=== PATIENT | female | born 1995 | race Caucasian/White ===

== ENCOUNTER 2022-12-15 16:12 | Emergency (ER) | payer BC ==
--- NOTE | 2022-12-15 20:52 | ED ---
Female Urogenital HPI - General Chief complaint: Abdominal Pain Stated complaint: Vag Bleeding-13 wks Time Seen by Provider: 12/15/22 20:09 Source: patient Mode of arrival: ambulatory Limitations: no limitations - History of Present Illness Initial comments: This patient is a 27-year-old woman who states that early today she noticed that when she went to the bathroom she was having small amount of spotting type bleeding. She was concerned because she is oxygen only 13 weeks by ultrasound. This is her first so she was very concerned. 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 She then came here to have evaluation. She notes that the bleeding has stopped. She went through 2 pads. The patient also had some associated cramping but that has stopped as well. The patient states that she feels back to normal now. She had not noted fever or chills. No change in urination. No vomiting or diarrhea. MD Complaint: vaginal bleeding -: hour(s) Location: suprapubic Radiation: non-radiating Severity: mild Quality: cramping Consistency: now resolved Improves with: none Worsens with: none Last Menstrual Period: 10/14/22 Patient : Yes Number of weeks : 13 Associated Symptoms: vaginal bleeding - Related Data Sexually active: Yes : 1 Para: 0 Previous Rx's Medication Instructions Recorded Amoxicillin 500 mg PO Q8H #21 capsule 12/15/22 Allergies Allergy/AdvReac Type Severity Reaction Status Date / Time No Known Allergies Allergy Verified 12/15/22 18:19 Review of Systems ROS Statement: Those systems with pertinent positive or pertinent negative responses have been documented in the HPI. ROS Other: All systems not noted in ROS Statement are negative. Constitutional: Denies: fever, chills Respiratory: Denies: cough, dyspnea Cardiovascular: Denies: chest pain, palpitations, edema Gastrointestinal: Reports: abdominal pain. Denies: nausea, vomiting, diarrhea, constipation, melena, hematochezia Genitourinary: Reports: discharge, abnormal menses. Denies: dysuria, frequency, hematuria Musculoskeletal: Denies: back pain Skin: Denies: rash Neurological: Denies: headache, weakness, numbness Hematological/Lymphatic: Denies: easy bleeding Past Medical History History of Any Multi-Drug Resistant Organisms: None Reported Additional Past Surgical History / Comment(s): rt wrist Past Psychological History: No Psychological Hx Reported Smoking Status: Never smoker Past Alcohol Use History: Occasional Past Drug Use History: None Reported General Exam Limitations: no limitations General appearance: alert, in no apparent distress Head exam: Present: atraumatic, normocephalic Eye exam: Present: normal appearance. Absent: scleral icterus, conjunctival injection Neck exam: Present: normal inspection Respiratory exam: Present: normal lung sounds bilaterally. Absent: respiratory distress, wheezes, rales, rhonchi, stridor Cardiovascular Exam: Present: regular rate, normal rhythm, normal heart sounds. Absent: systolic murmur, diastolic murmur, rubs, gallop GI/Abdominal exam: Present: soft. Absent: distended, tenderness, guarding, rebound, rigid, mass External exam: Present: other (Patient declined exam) Extremities exam: Present: normal inspection, normal capillary refill. Absent: pedal edema, calf tenderness Back exam: Present: normal inspection. Absent: CVA tenderness (R), CVA tenderness (L) Neurological exam: Present: alert Skin exam: Present: warm, dry, intact, normal color. Absent: rash Course Vital Signs 12/15/22 12/15/22 12/15/22 17:20 20:33 22:08 Temperature 98.3 F 97.8 F 98.3 F Pulse Rate 86 99 87 Respiratory 18 18 20 Rate Blood Pressure 128/81 122/74 110/71 O2 Sat by Pulse 98 99 100 Oximetry Medical Decision Making - Medical Decision Making Was pt. sent in by a medical professional or institution ([facility], AUTOMOTIVE TEACHER, urgent care, hospital, or fci...) When possible be specific @ -[No] Did you speak to anyone other than the patient for history (EMS, parent, family, police, friend...)? What history was obtained from this source @ -[No] Did you review nursing and triage notes (agree or disagree)? Why? @ -[I reviewed and agree with nursing and triage notes] Were old charts reviewed (outside hosp., previous admission, EMS record, old EKG, old radiological studies, urgent care reports/EKG's, fci records)? Report findings @ -[No old charts were reviewed] Differential Diagnosis (chest pain, altered mental status, abdominal pain women, abdominal pain men, vaginal bleeding, weakness, fever, dyspnea, syncope, headache, dizziness, GI bleed, back pain, seizure, CVA, palpatations, mental health, musculoskeletal)? @ -[The differential diagnosis in early trimester bleeding includes miscarriage, implantation bleeding, subchorionic hemorrhage, ectopic , molar , amongst other conditions EKG interpreted by me (3pts min.). @ -[As above] X-rays interpreted by me (1pt min.). @ -[None done] CT interpreted by me (1pt min.). @ -[None done] U/S interpreted by me (1pt. min.). @ -[Ultrasound interpreted by radiology What testing was considered but not performed or refused? (CT, X-rays, U/S, labs)? Why? @ -[None] What meds were considered but not given or refused? Why? @ -[None] Did you discuss the management of the patient with other professionals (professionals i.e. , PA, AUTOMOTIVE TEACHER, lab, RT, psych nurse, social work associate, artificial marble worker, teacher, financial aids officer, bilingual case manager)? Give summary @ -[No] Was smoking cessation discussed for >3mins.? @ -[No] Was critical care preformed (if so, how long)? @ -[No] Were there social determinants of health that impacted care today? How? (Homelessness, low income, unemployed, alcoholism, drug addiction, transportation, low edu. Level, literacy, decrease access to med. care, group home, rehab)? @ -[No] Was there de-escalation of care discussed even if they declined (Discuss DNR or withdrawal of care, Hospice)? DNR status @ -[No] What co-morbidities impacted this encounter? (DM, HTN, Smoking, COPD, CAD, Cancer, CVA, ARF, Chemo, Hep., AIDS, mental health diagnosis, sleep apnea, morbid obesity)? @ -[None] Was patient admitted / discharged? Hospital course, mention meds given and route, prescriptions, significant lab abnormalities, going to OR and other pertinent info. @ -[This patient is 27-year-old woman with first trimester bleeding. She is seen and evaluated. She declined to have gynecologic exam but did want to have the ultrasound. This does appear to show early as interpreted by the radiologist. There is also some bacteriuria and this will be treated. Discussed appropriate further care and follow-up. Blood type A positive Undiagnosed new problem with uncertain prognosis? @ -[No] Drug Therapy requiring intensive monitoring for toxicity (Heparin, Nitro, Insulin, Cardizem)? @ -[No] Were any procedures done? @ -[No] Diagnosis/symptom? @ -[Threatened miscarriage Acute bacteriuria in Acute, or Chronic, or Acute on Chronic? @ -[Acute Uncomplicated (without systemic symptoms) or Complicated (systemic symptoms)? @ -[default] Side effects of treatment? @ -[No] Exacerbation, Progression, or Severe Exacerbation? @ -[No] Poses a threat to life or bodily function? How? (Chest pain, [place], [place], pneumonia, PE, COPD, DKA, ARF, appy, cholecystitis, CVA, Diverticulitis, Homicidal, Suicidal, threat to staff... and all critical care pts) @ -[Low likelihood - Lab Data Lab Results 12/15/22 12/15/22 12/15/22 Range/Units 20:45 20:45 20:45 Urine Color Colorless Urine Appearance Clear (Clear) Urine pH 5.5 (5.0-8.0) Ur Specific [place] 1.004 (1.001-1.035) Urine Protein Negative (Negative) Urine Glucose (UA) Negative (Negative) Urine Ketones Trace H (Negative) Urine Blood Small H (Negative) Urine Nitrite Negative (Negative) Urine Bilirubin Negative (Negative) Urine Urobilinogen <2.0 (<2.0) mg/dL Ur Leukocyte Esterase Negative (Negative) Urine RBC <1 (0-5) /hpf Urine WBC 9 H (0-5) /hpf Ur Squamous Epith Cells 3 (0-4) /hpf Amorphous Sediment Rare H (None) /hpf Urine Bacteria Few H (None) /hpf Urine HCG, Qual Detected (Not Detectd) Blood Type A Positive Blood Type Recheck No Previous Record Bld Type Recheck Status [facility] ONLY Disposition Clinical Impression: Threatened miscarriage, Bacteriuria during Disposition: HOME SELF-CARE Condition: Good Instructions (If sedation given, give patient instructions): Threatened Miscarriage (ED), Urinary Tract Infection in (ED) Prescriptions: Amoxicillin 500 mg PO Q8H #21 capsule Is patient prescribed a controlled substance at d/c from ED?: No Referrals: Leesa Colbert MD [Primary Care Provider] - 1-2 days
[2022-12-15 22:10] VITALS: BP 110/71; PULSE 87; RESP 20; TEMP 98.3
[2022-12-15 22:41] LABS: Amorphous Sediment,Urine Rare /hpf; Appearance,Urine Clear (Clear); Bacteria,Urine Few /hpf; Bilirubin,Urine Negative (Negative); Blood,Urine Small (Negative); Color,Urine Colorless; Glucose,Urine (UA) Negative (Negative); Ketones,Urine Trace (Negative); Leukocyte Esterase,Urine Negative (Negative); Nitrite,Urine Negative (Negative); PH, Urine 5.5 (5.0-8.0); Protein,Urine Negative (Negative); RBC,Urine <1 /hpf (0-5); Specific Gravity,Urine 1.004 (1.001-1.035); Squamous Epithelial Cell,Urine 3 /hpf (0-4); Urobilinogen,Urine <2.0 mg/dL (<2.0); WBC,Urine 9 /hpf (0-5)
[2022-12-15] MEDS ORDERED: AMOXICILLIN 250 MG/5 ML 80 ML BOTTLE PO ONE (23:05)
--- NOTE | 2022-12-16 00:18 | US ---
EXAM: US First Trimester , Transabdominal CLINICAL HISTORY: ITS.REASON US Reason: bleeding early TECHNIQUE: Real-time transabdominal obstetrical ultrasound of the maternal pelvis and a first trimester with image documentation. COMPARISON: No relevant prior studies available. FINDINGS: Gestation: Single viable intrauterine with a heart rate of 160 bpm. [place]-rump length measures 7.62 cm yielding estimated gestational age of 13 weeks 5 days. Placenta/amniotic fluid: Cannot be adequately evaluated due to the early gestational age. Uterus/cervix: Unremarkable. No myometrial mass. Ovaries: Unremarkable. No mass. Free fluid: No free fluid. IMPRESSION: Single viable intrauterine with an estimated gestational age of 13 weeks 5 days
== END 2022-12-16 00:49 | disposition home or self-care (01) ==
LOC: EC 16:12
DX: O20.0 Threatened abortion (principal); O23.91 Unspecified genitourinary tract infection in pregnancy, first trimester; Z3A.13 13 weeks gestation of pregnancy
CPT/HCPCS: 76801; 81001; 81025; 86900; 86901; 99284

== ENCOUNTER 2023-03-24 14:40 | Outpatient (CLI) | payer BC ==
[2023-03-24 15:36] VITALS: BP 120/72; PULSE 95; RESP 16; TEMP 97.7
--- NOTE | 2023-04-13 17:32 | P.MSEPDOC ---
Presenting Problems - Arrival Data Date of Arrival on Unit: 03/24/23 Time of Arrival on Unit: 14:40 Mode of Transport: Ambulatory - Complaint OB-Reason for Admission/Chief Complaint: Decreased Movement Medical History - Information : 1 Para: 0 Term: 0 : 0 Abortions: Spontaneous or Elective: 0 Number of Living Children: 0 - Gestational Age Gestational Age by BARBARA (wks/days): 27 Weeks and 6 Days Review of Systems - Review of Systems Constitutional: No problems Breast: No problems ENT: No problems Cardiovascular: No problems Respiratory: No problems Gastrointestinal: No problems Genitourinary: No problems Musculoskeletal: No problems Neurological: No problems Skin: No problems Vital Signs - Temperature Temperature: 97.7 F Temperature Source: Temporal Artery Scan - Pulse Right Sitting Pulse Rate: 95 Pulse Assessment Method: Automatic Cuff - Respirations Respiratory Rate: 16 Oxygen Delivery Method: Room Air - Blood Pressure Right Arm Blood Pressure: 120/72 Blood Pressure Mean: 88 Blood Pressure Source: Automatic Cuff Medical Screen Scoring - Assessment - Baby A Baseline FHR: 135 Heart Rate - NICHD Category: Category I (Normal) Physician Notification - Physician Notified Physician Notified Date: 03/24/23 Physician Notified Time: 15:15 Physician: Shayy Ashley New Order Received: Yes (d/c home) Maternal Triage Index - Urgent/Priority 2 Urgent Priority 2: Yes Provider Notified: Shayy Ashley Provider Notified Time: 15:20 Criteria Met for Priority 2: c/o decreased movement, reassuring FHT for gestation Disposition - Disposition OB Disposition: Discharge to home, Written follow up instructions reviewed Discharge Date: 03/24/23 Discharge Time: 15:20 I agree with the RN Medical Screening Exam: Yes Physician's MSE Comment: I have neither seen nor examined the patient. Case reviewed; plan agreed upon as documented in EMR&OBIX.: Yes Diagnosis: RELATED CONDITIONS, UNSPECIFIED, SECOND TRIMESTER
== END 2023-03-24 15:20 | disposition home or self-care (01) ==
LOC: FBPOP 14:40
PROVIDERS: ATTEND Obstetrics & Gynecology
DX: O36.8121 Decreased fetal movements, second trimester, fetus 1 (principal); Z3A.27 27 weeks gestation of pregnancy
CPT/HCPCS: 99213

== ENCOUNTER 2023-06-15 16:54 | Inpatient (IN) | payer BC ==
[2023-06-15] MEDS ORDERED: METHYLERGONOVINE 0.2 MG/ML 1 ML AMP IM PRN (17:21)
[2023-06-15] MEDS ORDERED: TRANEXAMIC 1,000 MG/100ML-NACL 1,000 MG in EMPTY BAG 1 BAG IV PRN (17:21)
[2023-06-15] MEDS ORDERED: TERBUTALINE 1 MG/ML VIAL SQ PRN (17:21)
[2023-06-15] MEDS ORDERED: OXYTOCIN 10 UNIT/ML 1 ML VIAL IM PRN (17:21)
[2023-06-15] MEDS ORDERED: CARBOPROST TROMETHAMINE 250 MCG/ML 1 ML AMP IM PRN (17:21)
[2023-06-15] MEDS ORDERED: miSOPROStoL 200 MCG TAB PO PRN (17:21)
[2023-06-15 17:32] LABS: Basophils % (A) 0 %; Eosinophils # (A) 0.1 k/uL (0-0.7); Eosinophils % (A) 1 %; HCT 40.8 % (34.0-46.0); HGB 13.6 gm/dL (11.4-16.0); Lymphocytes # (A) 1.9 k/uL (1.0-4.8); Lymphocytes % (A) 17 %; MCH 30.5 pg (25.0-35.0); MCHC 33.3 g/dL (31.0-37.0); MCV 91.6 fL (80.0-100.0); Mean Platelet Volume 7.5; Monocytes # (A) 0.4 k/uL (0-1.0); Monocytes % (A) 4 %; Neutrophils # (A) 8.7 k/uL (1.3-7.7); Neutrophils % (A) 78 %; Platelet Count 328 k/uL (150-450); RBC 4.46 m/uL (3.80-5.40); RDW 12.8 % (11.5-15.5); WBC 11.2 k/uL (3.8-10.6)
--- NOTE | 2023-06-15 17:39 | P.HPOB ---
History of Present Illness H&P Date: 06/15/23 Chief Complaint: Induction of labor Ms. Quiñones is a 28 year old at 39 weeks and 5 days with EDC of 06/17/2023 by LMP consistent with 7 week ultrasound who presents for scheduled induction of labor for marginal cord insertion and polyhydramnios. Of note, the fetus is also small for gestational age estimated in the 23%ile for growth at 33 weeks gestation on last ultrasound. The has otherwise been uncomplicated. work-up: blood type A positive, antibody screen negative, rubella immune, VDRL non-reactive, HBsAg negative, HIV negative, HCV Ab negative, gonorrhea negative, chlamydia negative, 1 hour GTT within normal limits. GBS POSITIVE. s/p flu and Tdap vaccinations in . Past Medical History History of Any Multi-Drug Resistant Organisms: None Reported Additional Past Surgical History / Comment(s): rt wrist Smoking Status: Never smoker Medications and Allergies Home Medications Medication Instructions Recorded Confirmed Type Vit No.179/Iron/Folic 1 tab PO DAILY 03/24/23 06/15/23 History [ Tablet] Aspirin [Children's Aspirin] 81 mg PO DAILY 06/15/23 06/15/23 History Allergies Allergy/AdvReac Type Severity Reaction Status Date / Time No Known Allergies Allergy Verified 06/15/23 17:18 Exam Intake and Output 06/15/23 06/15/23 06/15/23 06:59 14:59 22:59 Other: Weight 98.883 kg Focused physical exam is performed. This is a healthy-appearing in no apparent distress. Breathing is non-labored. Abdomen is gravid and non-tender. Cervical exam is 1 cm, 50% effacement, -3 station. Cooks catheter is placed with a speculum and filled with 60cc in each balloon. Extremities non- tender and non-edematous. heart tones are reactive and reassuring on NST. Assessment and Plan Assessment: 28 year old at 39 weeks and 5 days here for IOL Plan: Admit, clear liquid diet, low-dose pitocin with cooks catheter overnight, continuous EFM and tocometer, close monitoring of patient. PCN for GBS ppx, first dose at 3AM.
[2023-06-15] MEDS: LACTATED RINGERS 1,000 ML IV SCH (17:55)
[2023-06-15] MEDS: OXYTOCIN 30 UNITS/500 ML NS 30 UNIT in SALINE 1 500ML.BAG IV SCH (17:55)
[2023-06-16] MEDS: PENICILLIN G POTASSIUM 5,000,000 UNIT in DEXTROSE 5% IN WATER 100 ML IVPB STA (02:57)
[2023-06-16] MEDS: PENICILLIN G POTASSIUM 2,500,000 UNIT in DEXTROSE 5% IN WATER 100 ML IVPB SCH (07:40)
[2023-06-16] MEDS ORDERED: fentaNYL (PF) 50 MCG/ML 5 ML AMP ONE (10:23)
[2023-06-16] MEDS ORDERED: ROPIVACAINE 5 MG/ML 30 ML VIAL ONE (10:23)
[2023-06-16] MEDS ORDERED: SODIUM CHLORIDE 0.9% 250 ML BAG ONE (10:23)
[2023-06-16] MEDS: LIDOCAINE 0.5% (PF) 5 MG/ML (50 ML SDV) SQ PRN (15:00)
[2023-06-16] MEDS ORDERED: diphenhydrAMINE 50 MG/ML 1 ML VIAL IVP PRN ×2 (15:07)
[2023-06-16] MEDS ORDERED: SIMETHICONE 80 MG CHEWABLE PO PRN (15:07)
[2023-06-16] MEDS ORDERED: HYDROCORTISONE 2.5% RECTAL CREAM 30 GM TUBE RECTAL PRN (15:07)
[2023-06-16] MEDS ORDERED: diphenhydrAMINE 25 MG CAP PO PRN (15:07)
[2023-06-16] MEDS ORDERED: BENZOCAINE/MENTHOL SPRAY 1 GM/SPRAY AEROSOL TOPICAL PRN (15:07)
[2023-06-16] MEDS ORDERED: diphenhydrAMINE 50 MG CAP PO PRN (15:07)
[2023-06-16] MEDS ORDERED: LANOLIN CREAM 1 GM TUBE TOPICAL PRN (15:07)
[2023-06-16] MEDS ORDERED: ZOLPIDEM 5 MG TAB PO PRN (15:07)
--- NOTE | 2023-06-16 15:07 | P.PROBDLV ---
Vaginal Delivery Note - . Vaginal Delivery Note: DATE OF SERVICE: 06/16/2023 PROCEDURE: Normal Vaginal Delivery ATTENDING: Dr. Shayy Ashley MD ESTIMATED BLOOD LOSS: 300 mL FINDINGS: VFI, Apgars 9/9. Weight 8 pounds and 2 ounces (3690 grams) PROCEDURE: Ms. Quiñones is a 28 year old at 39 weeks and 6 days presenting to labor and delivery for induction of labor. The has been complicated by marginal cord insertion, small for gestational age fetus in the 23%ile, and polyhydramnios. For further details, please review the admitting H&P. Cooks catheter was inserted on the evening of 06/15/23 with low dose oxytocin. After 12 hours, the cooks catheter was removed. AROM was undertaken at 815 revealing clear amniotic fluid. The patient received epidural anesthesia per her request. The patient was completely dilated at 1350. She pushed effectively with Category I to II heart tones. A viable female infant was delivered at 1437. The infant was placed on the maternal abdomen and bulb suctioned. The was noted to be spontaneously crying. Cord was clamped and cut after a 30-second de lay. The infant was handed off to the pediatric team. Placenta was delivered whole with gentle cord traction at 1440. Oxytocin was started to facilitate uterine tone. Uterine fundus was found to be firm and below the umbilicus upon fundal massage. Thorough examination of the cervix, vagina, periurethral area, and perineum revealed a second degree laceration which was infiltrated with lidocaine and repaired with 2-0 Vicryl in the usual fashion. The patient is stable and allowed to begin the bonding process.
[2023-06-16] MEDS: IBUPROFEN 600 MG TAB PO PRN (15:57)
[2023-06-16] MEDS: SENNOSIDES-DOCUSATE SODIUM 1 EACH TAB PO SCH (20:15)
[2023-06-16] MEDS: ACETAMINOPHEN TAB 325 MG TAB PO PRN (20:16)
[2023-06-17 06:49] LABS: Basophils % (A) 0 %; Eosinophils # (A) 0.1 k/uL (0-0.7); Eosinophils % (A) 1 %; HCT 35.9 % (34.0-46.0); HGB 11.6 gm/dL (11.4-16.0); Lymphocytes # (A) 1.6 k/uL (1.0-4.8); Lymphocytes % (A) 14 %; MCH 29.9 pg (25.0-35.0); MCHC 32.4 g/dL (31.0-37.0); MCV 92.4 fL (80.0-100.0); Mean Platelet Volume 7.5; Monocytes # (A) 0.5 k/uL (0-1.0); Monocytes % (A) 4 %; Neutrophils % (A) 79 %; Platelet Count 264 k/uL (150-450); RBC 3.89 m/uL (3.80-5.40); RDW 12.9 % (11.5-15.5); WBC 11.3 k/uL (3.8-10.6)
--- NOTE | 2023-06-17 09:01 | P.DS ---
Providers Date of admission: 06/15/23 16:54 Expected date of discharge: 06/17/23 Attending physician: Shayy Ashley MD Primary care physician: [facility] Course: Ms. Quiñones is a 28 year old now PPD#1 s/p normal vaginal delivery after induction of labor for marginal cord insertion and polyhydramnios. The patient is doing well this morning and had no acute events overnight. She has no complaints this morning. She reports minimal lochia, passing flatus, voiding without difficulty, ambulating, and eating/drinking without nausea or vomiting. doing well at bedside. She denies chest pain, shortness of breathing, fevers, or chills overnight. She denies pain or swelling in the legs. restrictions are reviewed with the patient including pelvic rest for 6 weeks. The patient is encouraged to call the office if she experiences any heavy bleeding, foul-smelling discharge, breast complaints, or any if she has any other concerns. She will follow up in the office in 6 weeks for exam. The patient plans to take Motrin and Tylenol OTC as needed for pain/ All questions are answered. Assessment: 28 year old now PPD#1 s/p normal vaginal delivery Patient Condition at Discharge: Good Plan - Discharge Summary New Discharge Prescriptions: No Action Vit No.179/Iron/Folic [ Tablet] 1 tab PO DAILY RX: Aspirin [Children's Aspirin] 81 mg PO DAILY Discharge Medication List Vit No.179/Iron/Folic [ Tablet] 1 tab PO DAILY 03/24/23 [History] RX: Aspirin [Children's Aspirin] 81 mg PO DAILY 06/15/23 [History] Follow up Appointment(s)/Referral(s): Shayy Ashley MD [STAFF PHYSICIAN] - 6 Weeks Activity/Diet/Wound Care/Special Instructions: Instructions 1. Do not begin any exercise program for 3 weeks. 2. Do not resume sexual relations for 6 weeks or longer if uncomfortable. 3. You may take tub baths or showers at any time. 4. You may use tampons if desired after 6 weeks. 5. Keep any areas repaired with stitches clean and dry. 6. If you are not nursing, wear a good fitting, supportive bra during the day and limit fluid intake for at least 1 week to prevent breast engorgement. 7. Call the office, , within the next week to make appointment for your 6 week checkup if it has not already been made. 8. Report any of the following occurrences to the doctor promptly: a. Heavy, excessive bleeding b. Chills, fever c. Burning or frequency of urination d. Pain or redness and breasts if nursing e. Increasing pain or swelling of vulva (stitches). In addition to the above instructions, the following additional should be followed: 1. No heavy lifting or straining (exercising) until after 6 week checkup. 2. Keep abdominal incision clean and dry: You may wear a dressing if more comfortable. 3. Make office appointment for 2 weeks after delivery date. Discharge Disposition: HOME SELF-CARE
[2023-06-18 10:14] VITALS: PULSE 76
[2023-06-18 17:25] VITALS: BP 110/73; RESP 17; TEMP 98.2
== END 2023-06-18 17:52 | disposition home or self-care (01) | DRG 807 ==
LOC: 4FBP 16:54
PROVIDERS: ADMIT Obstetrics & Gynecology; ATTEND Obstetrics & Gynecology
PROC: 3E033VJ Introduction of Other Hormone into Peripheral Vein, Percutaneous Approach (ICD-10-PCS; principal; 2023-06-16)
PROC: 0KQM0ZZ Repair Perineum Muscle, Open Approach (ICD-10-PCS; principal; 2023-06-16)
PROC: 10907ZC Drainage of Amniotic Fluid, Therapeutic from Products of Conception, Via Natural or Artificial Opening (ICD-10-PCS; principal; 2023-06-16)
PROC: 10E0XZZ Delivery of Products of Conception, External Approach (ICD-10-PCS; principal; 2023-06-16)
DX: O36.5930 Maternal care for other known or suspected poor fetal growth, third trimester, not applicable or unspecified (principal); Z37.0 Single live birth; O40.3XX0 Polyhydramnios, third trimester, not applicable or unspecified; O43.193 Other malformation of placenta, third trimester; O70.1 Second degree perineal laceration during delivery; O99.824 Streptococcus B carrier state complicating childbirth; Z3A.39 39 weeks gestation of pregnancy; Z79.82 Long term (current) use of aspirin
CPT/HCPCS: 85025; 86850; 86900; 86901